=== PATIENT | male | born 1975 | race Caucasian/White ===

== ENCOUNTER 2016-11-09 16:27 | Emergency (ER) ==
[2016-11-09 16:34] VITALS: BP 123/75; TEMP 97.2; BMI 26.6
[2016-11-09] MEDS ORDERED: SODIUM CHLORIDE 1,000 ML IV STA (16:39)
[2016-11-09] MEDS ORDERED: PHENERGAN 25 MG/ML VIAL 25 MG in SODIUM CHLORIDE 50 ML IV STA (16:40)
[2016-11-09] MEDS ORDERED: PHENERGAN 25 MG/ML VIAL ONE (16:45)
--- NOTE | 2016-11-09 16:59 | CT ---
EXAM: CT head without contrast. HISTORY: Vertigo. PROCEDURE: Contiguous axial CT images of the head without contrast. FINDINGS: The ventricles and basal cisterns are normal in size and configuration. No evidence of mass or midline shift. No intracranial hemorrhage or evidence of large vessel infarct. No extra-ax ial fluid collection. The paranasal sinuses and mastoid air cells are well-aerated. Impression: Negative CT of the head.
[2016-11-09 17:02] LABS: BASOPHILS # (AUTO) 0.1 K/uL (0-0.2); BASOPHILS % (AUTO) 0.4 % (0.0-3.0); EOSINOPHILS # (AUTO) 0.2 K/ul (0.0-0.7); EOSINOPHILS % (AUTO) 1.3 % (0.0-7.0); HEMATOCRIT 45.5 % (42.0-52.0); HEMOGLOBIN 15.2 g/dl (14.0-18.0); LYMPHOCYTES % (AUTO) 26.4 (10.0-50.0); MEAN CORPUSCULAR HEMOGLOBIN 29.9 pg (27.0-31.0); MEAN CORPUSCULAR HGB CONC 33.4 (31.8-35.4); MEAN CORPUSCULAR VOLUME 89.4 fl (80.0-94.0); MONOCYTES # (AUTO) 0.9 K/uL (0.4-2.0); MONOCYTES % (AUTO) 7.8 (0-10); NEUTROPHILS # (AUTO) 7.2 K/ul (2.0-6.9); NEUTROPHILS % (AUTO) 63.1; PLATELET COUNT 307 10^3/uL (140-440); RED BLOOD COUNT 5.09 10^6/ul (4.70-6.10); WHITE BLOOD COUNT 11.45 K/ul (4.2-10.2)
[2016-11-09 17:28] LABS: ALANINE AMINOTRANSFERASE 36 U/L (12-78); ALBUMIN 4.2 g/dL (3.4-5.0); ALBUMIN/GLOBULIN RATIO 1.17; ALKALINE PHOSPHATASE 103 U/L (50-136); ANION GAP 19.6; ASPARTATE AMINO TRANSFERASE 18 U/L (15-37); BILIRUBIN,TOTAL 0.27 mg/dL (0.00-1.20); BLOOD UREA NITROGEN 15 mg/dL (7-18); CALCIUM 9.3 mg/dL (8.2-10.2); CARBON DIOXIDE 21 mmol/L (21-32); CHLORIDE 105 mmol/L (98-107); CREATINE KINASE 35 U/L; CREATININE 1.19 mg/dL (0.60-1.10); GLUCOSE 104 mg/dL (70-100); POTASSIUM 3.6 mmol/L (3.5-5.1); SODIUM 142 mmol/L (136-145); TOTAL PROTEIN 7.8 g/dL (6.4-8.2)
--- NOTE | 2016-11-09 17:48 | ED.PDOC ---
General ED Provider: Dr. MOOKIE CAO-ER Chief Complaint: Dizziness Stated Complaint: my head is spinning and im nauseated when i move my head Time Seen by Physician: 16:30 Mode of Arrival: Walk-In Information Source: Patient, Family Exam Limitations: No limitations Nursing and Triage Documentation Reviewed and Agree: Yes Neurological Complaint Exam - Dizziness Complaint/Exam Last Known Well: yesterday Onset: Gradual Symptoms Are: Still present Timing: Intermittent Episodes Lasting: Days Initial Severity: Mild Current Severity: Mild Character: Reports: Head spinning, Room spinning, Lightheaded Aggravating: Reports: Position change, Change in head position Alleviating: Reports: Rest, Lying down Associated Signs and Symptoms: Reports: Nausea. Denies: Vomiting, Diaphoresis, Tinnitus, Chest pain, Short of air, Palpitations, Unsteady gait, GI blood loss, Visual changes, Decreased oral intake, Change in medication, Change in diet, OTC meds, Loss of balance JVD Present: No Carotid Bruit Present: Yes Rectal Heme Positive: No Glascow Coma Scale (see protocol): 15 Nystagmus Present: No Gag Reflex Present: Yes Meningeal Signs Positive: No Focal Weakness: Present: None Focal Sensory Loss: Present: None Gait: Normal [id number]: Normal Findings Romberg Test Positive: Yes Babinski Sign: Negative Right, Negative Left Heel to Toe Normal: Yes Aida-Hallpike Test Positive: No Differential Diagnoses: BPPV, Labyrinthitis, Meniere's Quality Indicator For Non-Traumatic Chest Pain/Syncope: EKG Performed Review of Systems - Review Of Systems Constitutional: Reports: No symptoms Eyes: Reports: No symptoms Ears, Nose, Mouth, Throat: Reports: No symptoms Respiratory: Reports: No symptoms Cardiac: Reports: No symptoms GI: Reports: Nausea : Reports: No symptoms Musculoskeletal: Reports: No symptoms Skin: Reports: No symptoms Neurological: Reports: Other Endocrine: Reports: No symptoms Hematologic/Lymphatic: Reports: No symptoms All Other Systems: Reviewed and Negative Past Medical History - Past Medical History Previously Healthy: Yes Endocrine: Reports: Unknown Cardiovascular: Reports: Unknown Respiratory: Reports: Unknown Hematological: Reports: Unknown Gastrointestinal: Reports: Unknown Genitourinary: Reports: Unknown Neuro/Psych: Reports: Unknown Musculoskeletal: Reports: Unknown Cancer: Reports: Unknown - Surgical History General Surgical History: Reports: Unknown - Family History Family History: Reports: Unknown - Social History Smoking Status: Current every day smoker, Heavy tobacco smoker Hx Substance Use: No Alcohol Screening: None Lives: With family Physical Exam - Physical Exam Appearance: Well-appearing, No pain distress, Well-nourished Eyes: KEON ENT: Ears normal Neck: Supple Respiratory: Airway patent Cardiovascular: RRR, Pulses normal, No rub, No murmur GI/: Soft, Nontender, No masses, Bowel sounds normal, No Organomegaly Musculoskeletal: Normal strength, ROM intact, No edema, No calf tenderness Skin: Warm, Dry, Normal color Neurological: Sensation intact, Motor intact, Reflexes intact, Cranial nerves intact, Alert, Oriented Psychiatric: Affect appropriate Interpretation - Radiology Interpretation Radiology Interpretation By: Radiologist Radiology Results: Negative Exam Interpreted: CT Scan - EKG Interpretation Time of EKG #1: 17:49 Rate: Normal Rhythm: Sinus Ectopy: None Avis: NL ST Segment: Normal Re-Evaluation - Re-Evaluation Time of Re-Evaluation: 18:03 Status: Improved Vital Signs Stable: Yes Pain Level: 0 Appearance: NAD Lungs: Clear Skin: Warm and Dry Neuro: Alert and Oriented X3 CV: RRR Critical Care Note - Critical Care Note Total Time (mins): 0 Course - Course Hematology/Chemistry: 11/09/16 16:55 11/09/16 16:55 Orders, Labs, Meds: Lab Review 11/09/16 11/09/16 16:55 17:45 WBC 11.45 H RBC 5.09 Hgb 15.2 Hct 45.5 MCV 89.4 MCH 29.9 MCHC 33.4 RDW Coeff of Sarah 13.3 Plt Count 307 Immature Gran % (Auto) 1.0 Neut % (Auto) 63.1 Lymph % (Auto) 26.4 [place]falfa % (Auto) 7.8 Eos % (Auto) 1.3 Baso % (Auto) 0.4 Immature Gran # (Auto) 0.1 Neut # 7.2 H Lymph # 3.0 Alfalfa # 0.9 Eos # 0.2 Baso # 0.1 Sodium 142 Potassium 3.6 Chloride 105 Carbon Dioxide 21 Anion Gap 19.6 BUN 15 Creatinine 1.19 H Estimated GFR (MDRD) 67.00 BUN/Creatinine Ratio 12.60 Glucose 104 H Calcium 9.3 Total Bilirubin 0.27 AST 18 ALT 36 Alkaline Phosphatase 103 Total Creatine Kinase 35 Troponin I < 0.0100 Total Protein 7.8 Albumin 4.2 Globulin 3.6 Albumin/Globulin Ratio 1.17 Urine Color Dark Urine Clarity Cloudy Urine pH 8.5 Ur Specific [place] 1.015 Urine Protein 1+ Urine Glucose (UA) Negative Urine Ketones Negative Urine Blood Trace-intact Urine Nitrite Negative Urine Bilirubin Negative Urine Urobilinogen 1.0 Ur Leukocyte Esterase Negative Urine Microscopic RBC 0-2 Ur Squamous Epith Cells Not Reportable Amorphous Sediment 3+ Urine Opiates Screen Negative Ur Oxycodone Screen Negative Urine Methadone Screen Negative Ur Propoxyphene Screen Negative Ur Barbiturates Screen Negative U Tricyclic Antidepress Negative Ur Phencyclidine Scrn Negative Ur Amphetamine Screen Negative U Methamphetamines Scrn Negative U Benzodiazepines Scrn Negative Urine Cocaine Screen Negative U Cannabinoids Screen Negative Orders Category Date Time Status EKG-(ED ONLY) Stat CARDIO 11/09/16 16:39 Completed ED ACCUCHECK ASSESSMENT .ONCE EMERGENCY 11/09/16 16:35 Active IV [ED IV/MEDIPORT/POWERPORT] .ONCE EMERGENCY 11/09/16 16:39 Active CBC W/ AUTO DIFF Stat LAB 11/09/16 16:55 Completed COMPREHENSIVE METABOLIC PANEL Stat LAB 11/09/16 16:55 Completed CREATINE KINASE Stat LAB 11/09/16 16:55 Completed TROPONIN I Stat LAB 11/09/16 16:55 Completed URINALYSIS C & S IF INDICATED Stat LAB 11/09/16 17:45 Completed URINE DRUG SCREEN (RAPID FOR ED) [DRUG SCREEN, URINE, LAB 11/09/16 17:45 Completed RAPID] Stat 0.9 % Sodium Chloride [Saline Flush] MEDS 11/09/16 16:39 Ordered 1 syr IVF PRN PRN Promethazine HCl [Phenergan 25 mg/ml Vial] MEDS 11/09/16 16:45 Discontinued 25 mg .ROUTE .STK-MED ONE Promethazine HCl [Phenergan 25 mg/ml Vial] 25 mg MEDS 11/09/16 16:40 Discontinued 0.9 % Sodium Chloride [Sodium Chloride] 50 ml IV ONCE Sodium Chloride 0.9% [Sodium Chloride] 1,000 ml MEDS 11/09/16 16:[address] HEAD W/O CONTRAST Stat RADS 11/09/16 16:40 Completed Medications Generic Name Dose Route Start Last Admin Trade Name Freq PRN Reason Stop Dose Admin Sodium Chloride 1 syr 11/09/16 16:39 11/09/16 17:01 Saline Flush IVF 1 syr PRN PRN Administration To flush IV Discontinued Medications Generic Name Dose Route Start Last Admin Trade Name Max PRN Reason Stop Dose Admin Promethazine HCl 25 mg/ Sodium 51 mls @ 75 mls/hr 11/09/16 16:40 11/09/16 17: 01 Chloride IV 11/09/16 17:20 75 mls/hr ONCE STA Administration Sodium Chloride 1,000 mls @ 1,000 mls/hr 11/09/16 16:39 11/09/16 17:01 Sodium Chloride IV 11/09/16 17:38 1,000 mls/hr BOLUS STA Administration Vital Signs: Temp Pulse Resp BP Pulse Ox 11/09/16 16:28 97.2 F L 76 18 123/75 98 Departure - Departure Time of Disposition: 18:04 Disposition: HOME SELF-CARE Discharge Problem: Vertigo Instructions: Vertigo (ED) Condition: Good Pt referred to PMD for follow-up: Yes Additional Instructions: antivert 25mg tid prn #21--rest--no climbing, driving until symptoms improve-- recheck in 48hrs if not better Allergies/Adverse Reactions: Allergies No Known Allergies Allergy (Verified 11/09/16 16:30) Home Medications: Ambulatory Orders 1 [No Reported Medications] 03/07/14 Disposition Discussed With: Patient, Family
[2016-11-09 17:50] LABS: BILIRUBIN,URINE Negative (NEGATIVE); KETONES,URINE Negative (NEGATIVE); LEUKOCYTE ESTERASE ,URINE Negative (NEGATIVE); NITRITE,URINE Negative (NEGATIVE); PH,URINE 8.5 (5-9); PROTEIN,URINE 1+ (NEGATIVE); URINE, BLOOD Trace-intact (NEGATIVE)
[2016-11-09 17:55] LABS: ADD URINE MICROSCOPIC YES
[2016-11-09 18:00] LABS: COCAIN SCREEN,URINE NEGATIVE (NEGATIVE)
== END 2016-11-09 18:25 | disposition home or self-care (01) ==
LOC: ED 16:27
DX: R42 Dizziness and giddiness (principal); F17.210 Nicotine dependence, cigarettes, uncomplicated
CPT/HCPCS: 36415; 80053; 80306; 81001; 82550; 82962; 84484; 85025; 93005; 93010; 96361; 96365; 99283

== ENCOUNTER 2017-09-13 19:06 | Emergency (ER) ==
[2017-09-13 19:18] VITALS: BP 130/89; TEMP 98.4; BMI 28.8
[2017-09-13] MEDS ORDERED: LIDOCAINE HCL 1% SDV IM STA (19:40)
[2017-09-13] MEDS ORDERED: ULTRAM PO STA (19:40)
[2017-09-13] MEDS ORDERED: ROCEPHIN IM STA (19:40)
[2017-09-13] MEDS ORDERED: BACTRIM DS 800/160 MG PO STA (19:40)
--- NOTE | 2017-09-13 19:47 | ED.PDOC ---
General ED Provider: Dr. MARTINE RIOS Chief Complaint: Bite Stated Complaint: Patient is a 41 year old male who states that he had a small 4 mm erythematous and raised area on the left forearm yesterday that is painful. Today pain is worse after it drained and has now developed surround redness of about 10 cm with a red streak going up to the left armpit. Time Seen by Physician: 19:41 Mode of Arrival: Walk-In Information Source: Patient Exam Limitations: No limitations Nursing and Triage Documentation Reviewed and Agree: Yes Reviewed sepsis parameters & appropriate labs ordered?: Yes System Inflammatory Response Syndrome: Not Applicable Sepsis Protocol: For patient's 13 years and over: Temp is 96.8 and below OR 101 and greater Pulse >90 BPM Resp >20/minute Acutely Altered Mental Status Are patient's symptoms suggestive of a new infection, such as: -Pneumonia -Skin, Soft Tissue -Endocarditis -UTI -Bone, Joint Infection -Implantable Device -Acute Abdominal Infection -Wound Infection -Meningitis -Blood Stream Catheter Infection -Unknown System Inflammatory Response Syndrome: Not Applicable Skin Complaint Exam - Skin/Soft Tissue Complaint/Exam Onset/Duration: 2 days Symptoms Are: Still present Timing: Constant Initial Severity: Mild Current Severity: Moderate Location: Proximal Forearm Character: Reports: Redness, Swelling, Raised, Painful Aggravating: Reports: Heat Alleviating: Reports: Cold Associated Signs and Symptoms: Reports: Fever, Itching, Drainage (but now is dry ), Tenderness, Red streaks Related History: Reports: Insect bite/sting. Denies: Similar episode, Recent trauma, Foreign body, Recent Med change, Prior MRSA/VRE, Recent inpatient, Recent travel, Immunocompromised Related Surgical History: Reports: None Recent Exposure to Others w/Similar Symptoms: No Skin Findings: Present: Erythema, Lymphangitic streaking. Absent: Fluctuant mass, Weeping skin Joint Tenderness Present: Yes Differential Diagnoses: Cellulitis, Infection, Lymphangitis Review of Systems - Review Of Systems Constitutional: Reports: No symptoms Eyes: Reports: No symptoms Ears, Nose, Mouth, Throat: Reports: No symptoms Respiratory: Reports: No symptoms Cardiac: Reports: No symptoms GI: Reports: No symptoms : Reports: No symptoms Musculoskeletal: Reports: Muscle pain Skin: Reports: Rash Neurological: Reports: Anxiety Endocrine: Reports: No symptoms Hematologic/Lymphatic: Reports: No symptoms All Other Systems: Reviewed and Negative Past Medical History - Past Medical History Previously Healthy: Yes Endocrine: Reports: Unknown Cardiovascular: Reports: Unknown Respiratory: Reports: Unknown Hematological: Reports: Unknown Gastrointestinal: Reports: Unknown Genitourinary: Reports: Unknown Neuro/Psych: Reports: Unknown Musculoskeletal: Reports: Unknown Cancer: Reports: Unknown - Surgical History General Surgical History: Reports: Unknown - Family History Family History: Reports: Unknown - Social History Smoking Status: Current every day smoker, Heavy tobacco smoker Hx Substance Use: No Alcohol Screening: None - Immunizations Tetanus Shot up to Date: No Physical Exam - Physical Exam Appearance: Ill-appearing Ill-appearing: Mild Pain Distress: Moderate Neck: Supple Respiratory: Airway patent, Breath sounds clear, Breath sounds equal, Respirations nonlabored Cardiovascular: RRR, Pulses normal, No rub, No murmur Skin: Warm, Dry Neurological: Alert, Oriented Psychiatric: Anxious Critical Care Note - Critical Care Note Total Time (mins): 0 Course - Course Orders, Labs, Meds: Orders Category Date Time Status Ceftriaxone Sodium [Rocephin] MEDS 09/13/17 19:40 Discontinued 1 gm IM ONCE STA Lidocaine HCl/Pf [Lidocaine HCl 1% Sdv] MEDS 09/13/17 19:40 Discontinued 2.1 ml IM ONCE STA Sulfamethoxazole/Trimethoprim [Bactrim Ds 800/160 mg] MEDS 09/13/17 19:40 Discontinued 1 tab PO ONCE STA Tramadol HCl [Ultram] MEDS 09/13/17 19:40 Discontinued 50 mg PO ONCE STA Medications Discontinued Medications Generic Name Dose Route Start Last Admin Trade Name Freq PRN Reason Stop Dose Admin Ceftriaxone Sodium 1 gm 09/13/17 19:40 09/13/17 19:51 Rocephin IM 09/13/17 19:41 1 gm ONCE STA Administration Lidocaine HCl 2.1 ml 09/13/17 19:40 09/13/17 19:53 Lidocaine Hcl 1% Sdv IM 09/13/17 19:41 2.1 ml ONCE STA Administration Tramadol HCl 50 mg 09/13/17 19:40 09/13/17 19:50 Ultram PO 09/13/17 19:41 50 mg ONCE STA Administration Trimethoprim/Sulfamethoxazole 1 tab 09/13/17 19:40 09/13/17 19:50 Bactrim Ds 800/160 Mg PO 09/13/17 19:41 1 tab ONCE STA Administration Vital Signs: Temp Pulse Resp BP Pulse Ox 09/13/17 19:14 98.4 F 90 16 130/89 96 Departure - Departure Time of Disposition: 20:16 Disposition: HOME SELF-CARE Discharge Problem: Spider bite wound Qualifiers: Encounter type: initial encounter Injury intent: accidental or unintentional Qualified Code(s): T63.301A - Toxic effect of unspecified spider venom, accidental (unintentional), initial encounter Instructions: Insect Bite or Sting (ED) Condition: Stable Pt referred to PMD for follow-up: Yes IPMP verified?: Yes (no Hits ) Additional Instructions: Take medications as prescribed. Follow up with PCP in 3 days Prescriptions: Cephalexin [Keflex] 500 mg PO Q8HR #30 capsule Sulfamethoxazole/Trimethoprim [Bactrim Ds Tablet] 1 each PO BID #20 tablet Tramadol HCl [Ultram] 50 mg PO Q6H PRN #20 tablet PRN Reason: Severe Pain Allergies/Adverse Reactions: Allergies No Known Allergies Allergy (Verified 09/13/17 19:18) Home Medications: Ambulatory Orders Cephalexin [Keflex] 500 mg PO Q8HR #30 capsule 09/13/17 Sulfamethoxazole/Trimethoprim [Bactrim Ds Tablet] 1 each PO BID #20 tablet 09/13 Tramadol HCl [Ultram] 50 mg PO Q6H PRN #20 tablet 09/13/17 Disposition Discussed With: Patient, Family
== END 2017-09-13 20:32 | disposition home or self-care (01) ==
LOC: ED 19:06
DX: T63.301A Toxic effect of unspecified spider venom, accidental (unintentional), initial encounter (principal); W57.XXXA Bitten or stung by nonvenomous insect and other nonvenomous arthropods, initial encounter; F17.210 Nicotine dependence, cigarettes, uncomplicated
CPT/HCPCS: 96372; 99282

== ENCOUNTER 2017-12-23 08:17 | Emergency (ER) ==
[2017-12-23 08:17] VITALS: BMI 27.3
[2017-12-23 08:27] VITALS: BP 135/87; TEMP 97.1
[2017-12-23] MEDS ORDERED: URO-JET MUCOUSMEMB ONE (08:38)
--- NOTE | 2017-12-23 10:01 | CT ---
EXAM: CT of the abdomen pelvis without contrast History: Bilateral flank pain. Comparison: CT abdomen pelvis 03/07/2014 Technique: Multiplanar CT images through the abdomen pelvis were obtained without the administration of IV contrast Findings: Dependent atelectasis seen within the lower lungs. No acute osseous abnormalities. The appendix is not seen. There are no secondary signs of appendicitis. No focal liver or splenic l esions. No discrete gallstones identified by CT. No peripancreatic inflammation. Adrenal glands ar e unremarkable. No renal stones and no hydronephrosis. No ureteral calculi. No dilated loops of ernestine wel. No free air and no ascites. No perirectal inflammation. No inflammatory stranding. Caceres cat heter within the decompressed bladder. Prostate is not enlarged. Caceres catheter balloon is near the prostatic urethra. Impression: 1. No acute intra-abdominal or pelvic process. 2. Caceres catheter within the decompressed bladder.
--- NOTE | 2017-12-23 10:14 | ED.PDOC ---
General ED Provider: Dr. KARINA LOJA Chief Complaint: Urinary Problem Stated Complaint: urinary retention Time Seen by Physician: 08:18 (unable to void x 3 days ) Mode of Arrival: Walk-In Information Source: Patient Exam Limitations: No limitations [facility] Nursing and Triage Documentation Reviewed and Agree: Yes Does patient meet sepsis criteria?: Yes If yes, has appropriate treatment been initiated?: No System Inflammatory Response Syndrome: Not Applicable Sepsis Protocol: For patient's 13 years and over: Temp is 96.8 and below OR 101 and greater Pulse >90 BPM Resp >20/minute Acutely Altered Mental Status Are patient's symptoms suggestive of a new infection, such as: -Pneumonia -Skin, Soft Tissue -Endocarditis -UTI -Bone, Joint Infection -Implantable Device -Acute Abdominal Infection -Wound Infection -Meningitis -Blood Stream Catheter Infection -Unknown Complaint Exam - Complaint/Exam Patient Complains of: Reports: Dysuria Onset/Duration: 3 days bladder scan postive for more than 200 ml urine Timing: Constant Initial Severity: Moderate Current Severity: Moderate Location of Pain: Reports: Flank Character: Reports: Colicky Aggravating: Reports: None Alleviating: Reports: None Associated Signs and Symptoms: Reports: Dysuria, Decreased urine output. Denies : Diaphoresis, Back pain, Fever, Hematuria, Constipation, Blood in stool, Rectal pain, Appetite change, Nausea, Vomiting, Penile swelling, Penile discharge, Increased urine frequency, Increased thirst, Decreased activity, Lethargy, Scrotal pain, Scrotal swelling, Abdominal Pain Testicular Torsion Risk Factors: Reports: None Surgical Obstruction Risk Factors: Reports: None Related Surgical History: Reports: None Abdominal Findings: Present: None Differential Diagnoses: UTI, Ureteral Calculi Review of Systems - Review Of Systems Constitutional: Reports: No symptoms Eyes: Reports: No symptoms Ears, Nose, Mouth, Throat: Reports: No symptoms Respiratory: Reports: No symptoms Cardiac: Reports: No symptoms GI: Reports: No symptoms : Reports: Dysuria Musculoskeletal: Reports: No symptoms Skin: Reports: No symptoms Neurological: Reports: No symptoms Endocrine: Reports: No symptoms Hematologic/Lymphatic: Reports: No symptoms All Other Systems: Reviewed and Negative Past Medical History - Past Medical History Previously Healthy: Yes Endocrine: Reports: Unknown Cardiovascular: Reports: Unknown Respiratory: Reports: Unknown Hematological: Reports: Unknown Gastrointestinal: Reports: Unknown Genitourinary: Reports: Unknown Neuro/Psych: Reports: Unknown Musculoskeletal: Reports: Unknown Cancer: Reports: Unknown - Surgical History General Surgical History: Reports: Unknown - Family History Family History: Reports: Unknown - Social History Smoking Status: Current every day smoker Hx Substance Use: No Alcohol Screening: Occasionally Physical Exam - Physical Exam Appearance: Well-appearing, No pain distress, Well-nourished Eyes: KEON, EOMI, Conjunctiva clear ENT: Ears normal, Nose normal, Oropharynx normal Respiratory: Airway patent, Breath sounds clear, Breath sounds equal, Respirations nonlabored Cardiovascular: RRR, Pulses normal, No rub, No murmur GI/: Soft, Nontender, No masses, Bowel sounds normal, No Organomegaly Musculoskeletal: Normal strength, ROM intact, No edema, No calf tenderness Skin: Warm, Dry, Normal color Neurological: Sensation intact, Motor intact, Reflexes intact, Cranial nerves intact, Alert, Oriented Psychiatric: Affect appropriate, Mood appropriate Interpretation - Radiology Interpretation Radiology Interpretation By: Radiologist Radiology Results: No acute changes (no stone) Critical Care Note - Critical Care Note Total Time (mins): 0 Course - Course Hematology/Chemistry: 12/23/17 08:45 12/23/17 08:45 Orders, Labs, Meds: Lab Review 12/23/17 12/23/17 12/23/17 08:45 08:45 08:45 WBC 7.73 RBC 4.88 Hgb 14.5 Hct 44.7 MCV 91.6 MCH 29.7 MCHC 32.4 RDW Coeff of Sarah 13.1 Plt Count 272 Immature Gran % (Auto) 0.3 Neut % (Auto) 61.1 Lymph % (Auto) 28.7 [place] % (Auto) 7.6 Eos % (Auto) 1.9 Baso % (Auto) 0.4 Immature Gran # (Auto) 0.0 Neut # (Auto) 4.7 Lymph # (Auto) 2.2 [place] # (Auto) 0.6 Eos # (Auto) 0.2 Baso # (Auto) 0.0 Sodium 140 Potassium 4.1 Chloride 109 H Carbon Dioxide 22 Anion Gap 13.1 BUN 14 Creatinine 1.05 Estimated GFR (MDRD) 77.00 BUN/Creatinine Ratio 13.33 Glucose 112 H Calcium 9.6 Total Bilirubin 0.3 AST 13 L ALT 18 Alkaline Phosphatase 74 Total Protein 7.0 Albumin 3.7 Globulin 3.3 Albumin/Globulin Ratio 1.12 Urine Color Yellow Urine Clarity Slightly Urine pH 6.0 Ur Specific [place] 1.015 Urine Protein Negative Urine Glucose (UA) Negative Urine Ketones Negative Urine Blood 2+ Urine Nitrite Negative Urine Bilirubin Negative Urine Urobilinogen 0.2 Ur Leukocyte Esterase Negative Urine Microscopic RBC 50-100 Urine Microscopic WBC 0-2 Ur Squamous Epith Cells 0-2 Ur Renal Epithelial Cell 2-5 Orders Category Date Time Status Bladder [ED BLADDER SCAN] .ONCE EMERGENCY 12/23/17 08:30 Ordered CBC W/ AUTO DIFF Stat LAB 12/23/17 08:30 Ordered COMPREHENSIVE METABOLIC PANEL Stat LAB 12/23/17 08:30 Ordered UA [URINALYSIS C & S IF INDICATED] Stat LAB 12/23/17 08:31 Uncollected Lidocaine HCl [Uro-Jet] MEDS 12/23/17 08:38 Discontinued 10 ml [id number] .STK-MED ONE CT ABD/PEL WO RENAL STONE PROT Stat RADS 12/23/17 08:30 Ordered Vital Signs: Temp Pulse Resp BP Pulse Ox 12/23/17 08:17 97.1 F L 82 16 135/87 98 Departure - Departure Time of Disposition: 10:14 Disposition: HOME SELF-CARE Discharge Problem: Urinary symptoms, Urinary retention Instructions: Urinary Retention in Men (ED) Condition: Good Pt referred to PMD for follow-up: Yes IPMP verified?: No Additional Instructions: Please call your Family Physician as soon as possible to schedule a follow-up appointment. Allergies/Adverse Reactions: Allergies No Known Allergies Allergy (Verified 12/23/17 08:21) Home Medications: Ambulatory Orders 1 [No Reported Medications] 12/23/17 Disposition Discussed With: Patient
== END 2017-12-23 10:25 | disposition home or self-care (01) ==
LOC: ED 08:17
DX: R33.9 Retention of urine, unspecified (principal); R30.0 Dysuria; F17.210 Nicotine dependence, cigarettes, uncomplicated
CPT/HCPCS: 36415; 74176; 80053; 81001; 85025; 99283

== ENCOUNTER 2017-12-25 22:22 | Emergency (ER) ==
[2017-12-25 22:26] VITALS: BP 159/80; TEMP 98; BMI 26.2
[2017-12-25] MEDS ORDERED: DILAUDID 2 MG/ML SDV IM STA (22:32)
[2017-12-25] MEDS ORDERED: PHENERGAN 25 MG/ML VIAL IM STA (22:32)
[2017-12-25] MEDS ORDERED: URO-JET MUCOUSMEMB ONE (22:36)
--- NOTE | 2017-12-25 23:06 | ED.PDOC ---
General ED Provider: Dr. MOOKIE CAO-ER Chief Complaint: Urinary Problem Stated Complaint: montez got a kidney stone down below Time Seen by Physician: 22:25 Mode of Arrival: Walk-In Information Source: Patient, Family Exam Limitations: No limitations Primary Care Provider: [facility] Nursing and Triage Documentation Reviewed and Agree: Yes Does patient meet sepsis criteria?: No If yes, has appropriate treatment been initiated?: No System Inflammatory Response Syndrome: Not Applicable Sepsis Protocol: For patient's 13 years and over: Temp is 96.8 and below OR 101 and greater Pulse >90 BPM Resp >20/minute Acutely Altered Mental Status Are patient's symptoms suggestive of a new infection, such as: -Pneumonia -Skin, Soft Tissue -Endocarditis -UTI -Bone, Joint Infection -Implantable Device -Acute Abdominal Infection -Wound Infection -Meningitis -Blood Stream Catheter Infection -Unknown Complaint Exam - Complaint/Exam Patient Complains of: Reports: Dysuria Onset/Duration: 24 hrs Symptoms Are: Still present Timing: Constant Initial Severity: Mild Current Severity: Mild Location of Pain: Reports: None Character: Reports: Colicky, Burning, Dull, Cramping Aggravating: Reports: Voiding, Straining Alleviating: Reports: None Associated Signs and Symptoms: Reports: Dysuria, Penile swelling Review of Systems - Review Of Systems Constitutional: Reports: No symptoms Eyes: Reports: No symptoms Ears, Nose, Mouth, Throat: Reports: No symptoms Respiratory: Reports: No symptoms Cardiac: Reports: No symptoms GI: Reports: No symptoms : Reports: Dysuria, Pain Musculoskeletal: Reports: No symptoms Skin: Reports: No symptoms Neurological: Reports: No symptoms Endocrine: Reports: No symptoms Hematologic/Lymphatic: Reports: No symptoms All Other Systems: Reviewed and Negative Past Medical History - Past Medical History Previously Healthy: Yes Endocrine: Reports: Unknown Cardiovascular: Reports: Unknown Respiratory: Reports: Unknown Hematological: Reports: Unknown Gastrointestinal: Reports: Unknown Genitourinary: Reports: Unknown Neuro/Psych: Reports: Unknown Musculoskeletal: Reports: Unknown Cancer: Reports: Unknown - Surgical History General Surgical History: Reports: Unknown - Family History Family History: Reports: Unknown - Social History Smoking Status: Current every day smoker, Heavy tobacco smoker Hx Substance Use: No Alcohol Screening: Occasionally - Immunizations Tetanus Shot up to Date: Yes Physical Exam - Physical Exam Appearance: Well-appearing, No pain distress, Well-nourished Pain Distress: Moderate Eyes: KEON, EOMI, Conjunctiva clear ENT: Ears normal, Nose normal, Oropharynx normal Neck: Supple Respiratory: Airway patent, Breath sounds clear, Breath sounds equal, Respirations nonlabored Cardiovascular: RRR, Pulses normal, No rub, No murmur GI/: Soft, Nontender, No masses, Bowel sounds normal, No Organomegaly Musculoskeletal: Normal strength, ROM intact, No edema, No calf tenderness Skin: Warm, Dry, Normal color Neurological: Sensation intact, Motor intact, Reflexes intact, Cranial nerves intact, Alert, Oriented Psychiatric: Affect appropriate, Mood appropriate, Anxious Procedures - Foreign Body Removal Location of Foreign Object: tip of penis Foreign Object: kidney stone Depth of Object: superficial Type of Anesthesia: Topical Medication Used: Yes: Lidocaine Irrigation: No Skin Incised: No Instruments Used: Yes: Forceps Foreign Body Identified and Removed: No Physician Notification - Case Discussed Physician Notified: dr conn---[facility] Time of Notification: 23:06 Critical Care Note - Critical Care Note Total Time (mins): 0 Course - Course Orders, Labs, Meds: Orders Category Date Time Status TRANSFER TO OUTSIDE FACILITY .TO [facility] C[facility] 12/25/17 23:07 Active ([place], [place]) WRITE TRANSFER/SBAR NOTE ONCE CARE 12/25/17 23:07 Completed DISCHARGE ASSESSMENT ONCE DISCHARGE 12/25/17 23:07 Completed WRITE DISCHARGE NOTE ONCE DISCHARGE 12/25/17 23:07 Completed Bladder Scan [ED BLADDER SCAN] .ONCE EMERGENCY 12/25/17 22:33 Active Hydromorphone HCl [Dilaudid 2 mg/ml Sdv] MEDS 12/25/17 22:32 Discontinued 2 mg IM ONCE STA Lidocaine HCl [Uro-Jet] MEDS 12/25/17 22:36 Discontinued 10 ml [id number] .STK-MED ONE Promethazine HCl [Phenergan 25 mg/ml Vial] MEDS 12/25/17 22:32 Discontinued 25 mg IM ONCE STA Medications Discontinued Medications Generic Name Dose Route Start Last Admin Trade Name Freq PRN Reason Stop Dose Admin Hydromorphone HCl 2 mg 12/25/17 22:32 12/25/17 22:41 Dilaudid 2 Mg/Ml Sdv IM 12/25/17 22:33 2 mg ONCE STA Administration Promethazine HCl 25 mg 12/25/17 22:32 12/25/17 22:41 Phenergan 25 Mg/Ml Vial IM 12/25/17 22:33 25 mg ONCE STA Administration Vital Signs: Temp Pulse Resp BP Pulse Ox 12/25/17 22:23 98 F 106 H 18 159/80 H 97 Departure - Departure Time of Disposition: 23:06 Disposition: [facility]SF SHORT-TRM HOSP Discharge Problem: Foreign body of penis Qualifiers: Encounter type: initial encounter Qualified Code(s): T19.4XXA - Foreign body in penis, initial encounter Instructions: Soft Tissue Foreign Body (ED) Condition: Good Pt referred to PMD for follow-up: No IPMP verified?: No Allergies/Adverse Reactions: Allergies No Known Allergies Allergy (Verified 12/25/17 22:25) Home Medications: Ambulatory Orders 1 [No Reported Medications] 12/23/17 Transfer Form Completed: Yes Disposition Discussed With: Patient, Family
== END 2017-12-25 23:17 | disposition short-term general hospital (02) ==
LOC: ED 22:22
DX: N21.1 Calculus in urethra (principal); F17.210 Nicotine dependence, cigarettes, uncomplicated
CPT/HCPCS: 96372; 99285

== ENCOUNTER 2017-12-25 23:16 | Outpatient (CLI) ==
[2017-12-25 22:26] VITALS: BMI 26.2
== END 2017-12-25 23:35 | disposition short-term general hospital (02) ==
LOC: AMBL 23:16
PROVIDERS: ATTEND Family Medicine
DX: N20.1 Calculus of ureter (principal)